=== PATIENT | female | born 1975 | race Caucasian/White ===

== ENCOUNTER → 2016-12-07 | Outpatient (CLI) | payer BC, OTHER | LOC: FIMAGING 11:53 | DX: I77.71 Dissection of carotid artery (principal); G90.2 Horner's syndrome; R29.818 Other symptoms and signs involving the nervous system ==

== ENCOUNTER → 2018-03-14 | Outpatient (CLI) | payer OTHER | LOC: FIMAGING 12:13 | PROVIDERS: ATTEND Family Medicine | DX: R29.818 Other symptoms and signs involving the nervous system (principal); I77.71 Dissection of carotid artery ==

== ENCOUNTER → 2018-03-24 | Outpatient (CLI) | payer OTHER | LOC: FIMAGING 11:38 | PROVIDERS: ATTEND Family Medicine | DX: Z12.31 Encounter for screening mammogram for malignant neoplasm of breast (principal); Z80.3 Family history of malignant neoplasm of breast ==